=== PATIENT | male | born 1990 | race Caucasian/White ===

== ENCOUNTER 2017-10-05 16:48 | Emergency (ER) | payer BC ==
[~2017-10-05] VITALS: Wt 142.9 kg
[~2017-10-05 16:48] MED LIST: CYCLOBENZAPRINE10 MG PO; HYDROCODONE BIT1 T11 PO; Motrin,Rufen800 MG PO
[2017-10-05] MEDS ORDERED: NAPROXEN500 MG PO (17:08)
[2017-10-05] MEDS ORDERED: NAPROSYN500 MG PO (17:12)
[2017-10-05] MEDS ORDERED: 'PARAFON FORTE500 M1 PO (17:12)
== END 2017-10-05 18:19 | disposition home or self-care (01) ==
LOC: ED 16:48
DX: M25.511 Pain in right shoulder (principal)

== ENCOUNTER 2017-12-29 22:37 | Emergency (ER) | payer BC ==
[~2017-12-29] VITALS: Ht 180.3 cm; Wt 147.4 kg
[~2017-12-29 22:37] MED LIST changes: +'PARAFON FORTE500 M1 PO; +NAPROSYN500 MG PO; +NAPROXEN500 MG PO
[2017-12-29] MEDS ORDERED: PREDNISONE20 M1 PO (23:51)
[2017-12-29] MEDS ORDERED: AMOXICILLIN500 M2 PO (23:51)
== END 2017-12-29 23:54 | disposition home or self-care (01) ==
LOC: ED 22:37
DX: J20.9 Acute bronchitis, unspecified (principal)

== ENCOUNTER 2019-06-03 08:25 | Emergency (ER) | payer BC ==
[~2019-06-03] VITALS: Ht 180.3 cm; Wt 129.3 kg
[~2019-06-03 08:25] MED LIST changes: +AMOXICILLIN500 M2 PO; +PREDNISONE20 M1 PO
[2019-06-03] MEDS ORDERED: NAPROSYN500 MG PO (10:15)
== END 2019-06-03 10:25 | disposition home or self-care (01) ==
LOC: ED 08:25
DX: S93.401A Sprain of unspecified ligament of right ankle, initial encounter (principal); R23.0 Cyanosis; W22.8XXA Striking against or struck by other objects, initial encounter; Y93.61 Activity, american tackle football; Y92.89 Other specified places as the place of occurrence of the external cause; Y99.8 Other external cause status